=== PATIENT | female | born 1930 | race Caucasian/White ===

== ENCOUNTER → 2017-05-13 | Outpatient (CLI) | payer MEDICARE, OTHER ==
--- NOTE | 2017-05-14 11:34 | MM ---
Reason for exam: screening (asymptomatic). Last mammogram was performed 1 year and 2 months ago. History: Patient is postmenopausal and has history of other cancer at age 79. Physical Findings: A clinical breast exam by your physician is recommended on an annual basis and results should be correlated with mammographic findings. MG 3D Screening Mammo W/Cad Bilateral CC and MLO view(s) were taken. Prior study comparison: March 07, 2016, bilateral MG 3d screening mammo w/cad. February 25, 2015, bilateral MG screening mammo w CAD. The breast tissue is heterogeneously dense. This may lower the sensitivity of mammography. Finding: There are typically benign calcifications in both breasts. There is a chronic nodularity in the left breast, stable. No significant changes in finding since March 07, 2016 and February 25, 2015. ASSESSMENT: Benign, BI-RAD 2 RECOMMENDATION: Routine screening mammogram of both breasts in 1 year.
== END | disposition home or self-care (01) ==
LOC: RADMAMWWP 10:50
PROVIDERS: ATTEND Family Medicine
DX: Z12.31 Encounter for screening mammogram for malignant neoplasm of breast (principal)
CPT/HCPCS: 77063; G0202

== ENCOUNTER → 2017-11-06 | Outpatient (CLI) | payer MEDICARE ==
[2017-11-06 10:52] LABS: Blood Urea Nitrogen 32 mg/dL (7-17)
--- NOTE | 2017-11-06 23:14 | MR ---
EXAMINATION TYPE: MR brain wo/w con DATE OF EXAM: 11/06/2017 COMPARISON: NONE HISTORY: 87-year-old female visual disturbance TECHNIQUE: Multiplanar, multisequence images of the brain and brainstem were acquired before and aft er administration of 5 mL IV Gadavist. Diffusion weighted imaging is performed. FINDINGS: There is a large, lobulated, avidly enhancing mass involving the sella, suprasellar cistern, extendin g up to abut the undersurface of the rostrum of the corpus callosum, and filling the anterior aspect of the third ventricle and with apparent dural tails. The lesion extends on either side to the cavern ous sinuses and space directly anterior to the optic chiasm. No significant sellar enlargement is jayshree ntified. The mass measures 2.9 cm AP by 3.3 cm craniocaudal by 2.2 cm wide. No evidence for acute infarction, hemorrhage, midline shift shift, herniation, effacement of basal ci sterns, or extra-axial fluid collection. The ventricles and sulci are age-appropriate. Major intracranial flow voids are intact. T2/FLAIR weighted sequences show moderate scattered burden of bright white matter change in both cere bral hemispheres. The craniocervical junction is normal. Post contrast images demonstrate no other evidence of pathologic enhancement. Dural venous sinuses a re patent. Mild mucosal thickening ethmoid air cells. The globes are intact. IMPRESSION: 1. Large lobulated 3.3 cm sellar and suprasellar mass extending to fill the anterior aspect of the th ird ventricle, filling the space directly in front of the optic chiasm, and extending up to abut the undersurface of the rostrum of the corpus callosum. Absence of sellar enlargement and the presence of dural tails favors meningioma over pituitary macroadenoma. Further clinical correlation recommended. 2. Moderate scattered burden of chronic small vessel ischemic disease. No acute intracranial abnormal ity seen.
== END | disposition home or self-care (01) ==
LOC: RADMRIMAIN 10:11
PROVIDERS: ATTEND Ophthalmology
DX: I67.82 Cerebral ischemia (principal); E23.6 Other disorders of pituitary gland; Z88.2 Allergy status to sulfonamides
CPT/HCPCS: 82565; 84520; 70553; 36415; A9581